=== PATIENT | female | born 1965 | race Caucasian/White ===

== ENCOUNTER 2020-11-01 10:27 | Emergency (ER) | payer OTHER, SELFPAY ==
[2020-11-01 10:46] VITALS: BP 111/73; PULSE 68; RESP 18; TEMP 36.3; O2SAT 99
--- NOTE | 2020-11-01 14:52 | ED.SKABFB ---
HPI - Skin/Abscess/Foreign Bdy General Chief complaint: Wound/Laceration Stated complaint: Spider bite L leg Time Seen by Provider: 11/01/20 14:44 History of Present Illness HPI narrative: 55 yo female w/ h/o bipolar disorder presents to the ED c/o spider bite. She reports that while she was in bed last night she felt something bite her leg. This morning she had a painful red area with central wound. No fever, chills, nausea, vomiting. Related Data Allergies Allergy/AdvReac Type Severity Reaction Status Date / Time Penicillins Allergy Unknown Verified 11/01/20 15:26 simvastatin Allergy Unknown Verified 11/01/20 15:26 Review of Systems Review of Systems: All systems reviewed & are unremarkable except as noted in HPI and below Constitutional: Constitutional: Denies chills and Denies fever(s) Cardiovascular: Cardiovascular: Denies chest pain Respiratory: Respiratory: Denies dyspnea Gastrointestinal: Gastrointestinal: Reports no additional gastrointestinal complaints Neurologic: Reports system reviewed and no additional complaints, except as documented [facility] Past Medical History Medical History (Updated 11/01/20 @ 20:28 by Hal Calzada MD) Bipolar disorder Pressure ulcer of left heel Social History Social History (Updated 11/01/20 @ 20:28 by Hal Calzada MD) Living arrangements: custodial Exam Const: General: no acute distress and alert Orientation/consciousness: patient oriented x3 HENMT: Head: normal to inspection Resp: Effort & Inspection: normal respiratory effort Auscultation: clear to auscultation bilaterally Cardio: Rate: regular rate Rhythm: regular rhythm Other: 2 + DP bilaterally GI: GI Palp: Yes Soft to palpation and No Tenderness to palpation present (GI) Skin: Other: Draining abscess to left lower leg with overlying cellulitis Neuro: General: patient oriented x3, moves all extremities and CN's II-XI intact bilaterally Speech: normal speech Extrem: Other: healing pressure ulcer to left heel Course Vital Signs Vital signs: Vital Signs Temperature 36.3 C L 11/01/20 10:46 Pulse Rate 68 11/01/20 10:46 Respiratory Rate 18 11/01/20 10:46 Blood Pressure 111/73 11/01/20 10:46 Pulse Oximetry 99 11/01/20 10:46 Temperature 36.3 C L 11/01/20 10:46 Pulse Rate 93 11/01/20 17:00 Respiratory Rate 14 11/01/20 17:00 Blood Pressure 110/74 11/01/20 17:00 Pulse Oximetry 98 11/01/20 17:00 Procedures Abscess I/D lower extremity: Date of Incision: 11/01/20 Side (if applicable): left Local Anesthetic: lidocaine 1% and with epi Amount of anesthesia used (mL): 6 Technique: incised with #15 blade Amount of fluid expressed (mL): 3 Irrigation: Yes Packing used?: iodoform I&D Results: Pus MDM - Skin/Abscess/Foreign Bdy Differential Diagnosis Differential diagnosis: Likely abscess of skin or subcutaneous tissue Medical Records Attestation: I reviewed the patient's medical records. Lab Data Attestation: I reviewed the patient's lab results. Discharge Plan Discharge Clinical Impression: Abscess Patient Disposition: NH Intermediate/Asst Living Condition: Stable Instructions: Antibiotic Form, Abscess (ED) Prescriptions: New sulfamethoxazole-trimethoprim [Bactrim DS] 800-160 mg tablet 1 tablet PO Q12H Qty: 20 RF: 0 Follow-up/Referrals: PHYSICIAN,QUANTITATIVE ANALYST DEVELOPER [Non-Staff] - Mahin Turner DO [Physician] -
--- NOTE | 2020-11-01 14:53 | PC.NURSE ---
rekha cunningham on h
--- NOTE | 2020-11-01 14:59 | PC.NURSE ---
yellow clasp on arm band, yellow triangle on door, bed alarm and air filler block inserter remover mattress under pt. Pt. educated sizing sponger light, to call for help and not try to get up. Primary RN aware. Also, wound to L heel- had upon arrival and wearing splint for, L heel floated off of bed. Pt.'s posterior splint removed and at bedside with pt. clothes.
--- NOTE | 2020-11-01 15:19 | ED_ITS ---
HPI - Wound/Laceration General Chief Complaint: Wound/Laceration Stated Complaint: Spider bite L leg Time Seen by Provider: 11/01/20 14:44 Course Vital Signs Vital signs: Vital Signs Temperature 36.3 C L 11/01/20 10:46 Pulse Rate 68 11/01/20 10:46 Respiratory Rate 18 11/01/20 10:46 Blood Pressure 111/73 11/01/20 10:46 Pulse Oximetry 99 11/01/20 10:46 Temperature 36.3 C L 11/01/20 10:46 Pulse Rate 68 11/01/20 10:46 Respiratory Rate 18 11/01/20 10:46 Blood Pressure 111/73 11/01/20 10:46 Pulse Oximetry 99 11/01/20 10:46 Discharge Plan Discharge Clinical Impression: Abscess Patient Disposition: NH [facility]/Asst Living Condition: Stable Instructions: Antibiotic Form, Abscess (ED) Follow-up/Referrals: PHYSICIAN,SUPERVISOR PHOSPHORIC ACID [Primary Care Provider] -
[2020-11-01 15:52] VITALS: BP 118/81; PULSE 96; RESP 14; O2SAT 99
--- NOTE | 2020-11-01 16:03 | PC.NURSE ---
made contact with flores to transfer pt to [facility]. eta [id number]
--- NOTE | 2020-11-01 16:45 | PC.NURSE ---
sandra has arrived and is aware that pt is going to [facility]
[2020-11-01 17:00] VITALS: BP 110/74; PULSE 93; RESP 14; O2SAT 98
== END 2020-11-01 17:01 ==
PROVIDERS: Emergency Provider Emergency Medicine
DX: L02.416 Cutaneous abscess of left lower limb (principal)
CPT/HCPCS: 10061; 99283; A9270